=== PATIENT | female | born 1965 | race African-American/Black ===

== ENCOUNTER 2018-03-22 10:54 | Outpatient (CLI) | payer OTHER | END 2018-03-22 10:55 | disposition home or self-care (01) | LOC: DTY/OP 10:54 | PROVIDERS: ATTEND Specialist | DX: Z01.818 Encounter for other preprocedural examination (principal); E66.01 Morbid (severe) obesity due to excess calories | CPT/HCPCS: 97802 ==

== ENCOUNTER 2018-04-25 11:02 | Outpatient (CLI) | payer OTHER | END 2018-04-25 11:03 | disposition home or self-care (01) | LOC: DTY/OP 11:02 | PROVIDERS: ATTEND Specialist | DX: Z02.9 Encounter for administrative examinations, unspecified (principal) | CPT/HCPCS: 97802 ==